=== PATIENT | female | born 1965 | race Caucasian/White ===

== ENCOUNTER 2017-02-19 19:46 | Emergency (ER) | payer MEDICAID ==
[~2017-02-19] VITALS: Ht 172.7 cm; Wt 57.2 kg
[2017-02-19] MEDS ORDERED: ALPRAZOLAM0.5 MG PO (20:02)
[2017-02-19] MEDS ORDERED: AMITRIPTYLINE 225 MG PO (20:03)
[2017-02-19] MEDS ORDERED: LIPITOR40 MG PO (20:03)
[2017-02-19] MEDS ORDERED: ASPIRIN 81MG TA81 MG PO (20:03)
[2017-02-19] MEDS ORDERED: CLOPIDOGREL75 MG PO (20:04)
[2017-02-19] MEDS ORDERED: BREO ELLIPTA1 POW IH (20:04)
[2017-02-19] MEDS ORDERED: MELOXICAM15 MG PO (20:05)
[2017-02-19] MEDS ORDERED: METOPROLOL SUCC25 M1 PO (20:05)
[2017-02-19] MEDS ORDERED: NITROGLYCERIN0.4 MG SL (20:07)
--- NOTE | 2017-02-19 20:14 | Emergency Room Report ---
History of Present Illness Time Seen by 1999 Presenting Problem in Triage Pt arrived:Walked Presenting Problem:PT C/O LEFT RIB, ARM, SHOULDER PAIN. 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 N Clinical Suspician of Infection? N Mental Status: 1 - Regular (Normal Baseline) Sepsis Risk:Possible Sepsis Risk Have you (or family members/close friends) recently traveled outside the [place]? N If Yes, where/when: Have you had exposure to infectious disease within the past month? N TB? Other? Specify: Source patient, RN notes reviewed, family, old records Exam Limitations no limitations Comment pt with lt ant chest pain on lt and toward shoulder with pain inc with insp - has had pxt in past - did lift yesterday - no fever or cough and no rash - Cardiac Chest Pain Chest pain indicative of cardiac No Timing/Duration this evening Severity moderate ALLERGIES Coded Allergies: No Known Allergies (04/02/16) Home Medications Reported Medications ALPRAZOLAM (Alprazolam 0.5MG) 0.5 MG PO TID Amitriptyline Hcl (Amitriptyline) 25 MG PO QHS ASPIRIN (Aspirin) 81 MG PO DAILY Atorvastatin Calcium (Atorvastatin) 20 MG PO DAILY FLUTICASONE/VILANTEROL (Breo Ellipta 100-25 Mcg INH) 1 POW IH DAILY CLOPIDOGREL BISULFATE (Clopidogrel 75MG) 75 MG PO DAILY Meloxicam (Meloxicam 15MG) 15 MG PO BID Metoprolol Succinate Xl (Metoprolol ER 25MG) 25 MG PO DAILY NITROGLYCERIN (Nitrostat) 0.4 MG SL [id number] PRN CP, HEART History Medical History General CAD? Yes Angina: No MD: No Hypertension? No Hyperlipidemia? Yes CHF? No DVT? No PE? No COPD? No Asthma? Yes Anemia? No GERD? No Gastric ulcers? No GI Bleed? No Hernia? No Thyroid Problems? No Hypothyroidism? No CVA? No Seizures? No Diabetes? No Renal Insuffiency? No End Stage Renal Disease? No UTI? No Stones? No BPH? No GB Disease: No Nephritic Syndrome? No Asplenia? No Hepatitis? No Sickle Cell Disease? No Arthritis? No Migraines? No Cataracts? Yes Glaucoma? No MRSA? No HIV? No TB? No Anxiety? Yes Depression? No Cancer? No More? 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 Respiratory see HPI, denies cough, denies shortness of breath, denies wheezing, other Cardiovascular see HPI, denies chest pain, denies palpitations, denies syncope, other Gastrointestinal denies abdominal pain, denies diarrhea, denies vomiting Genitourinary denies: dysuria, frequency, hesitancy, hematuria. Musculoskeletal denies back pain, denies joint pain, denies joint swelling, denies neck pain Skin denies rash Psychiatric/Neurological denies headache, denies seizure Physical Exam Vital Signs Vital Signs Date Time Temp Pulse Resp B/P Pulse O2 O2 Flow FiO2 Ox Delivery Rate 02/19 1949 98.4 92 20 136/92 100 - WBC >12,000 or <4,000 or 10% bands? 2 or more SIRS Criteria Met? B/P:136/92 MAP:106 Creatinine >2.0? UA output<0.5ml/kg/hr for 2 hrs? Platelet count >100,000? Lactate >2.0mmol/1? INR >1.2 or PTT > than 60 sec? Evidence of Organ Dysfunction? Provider documented clinical suspician of infection? N Sepsis Criteria Count: 2 Sepsis Risk: Possible Sepsis Risk General Appearance no apparent distress Eye Exam - bilateral eye PERRL, bilateral eye EOMI Ear, Nose, Throat normal ENT inspection Neck supple Respiratory Status Yes: tender on palpation. No: respiratory distress. Lung Sounds bilateral: lungs clear. Cardiovascular regular rate/rhythm, no rub, systolic murmur Peripheral Pulses Pulses normal Yes Gastrointestinal soft Extremities normal inspection Strength 4 Upper Ext (L), 4 Upper Ext (R), 4 Lower Ext (L), 4 Lower Ext (R) Neurologic alert, assessor II-XII nml as tested, no motor/sensory deficits Reflexes Reflexes normal No Mental status normal mood/affect Skin no rash cons.w/shingles Medical Decision Making LABS/Meds/Orders Pt receiving controlled substance in ED? No Results/Orders Orders Procedure Date/time Status DIET-NOTHING BY MOUTH 02/[address] CHEST W/O CONTRAST 02/[address] SCAN REQ 02/19 2031 Complete OIA-[id number]-FA-UNI-3 VIEWS 02/20 2000 Active HUMERUS-LT 02/20 2000 Active CHEST(2 VIEWS-NOT PORTABLE) 02/20 2000 Active XRAY/CT/US XRAY/CT/US 1 XRAY chest XR interpretation by reviewed by me Xray Results abnormal (pos apical changes), no infiltrates XRAY/CT/US [address] interpretation by discussed w/radiologist Time results known: 2133 CT Results abnormal (see report) Departure Departure Time of Disposition 2134 Disposition DC Home or Self Care(routine) Clinical Impression Primary Impression: Pleurodynia Condition STABLE Referrals Dodie Lorenzana MD (Family) Patient Instructions DI for Atypical Chest Pain Additional Instructions use meds and see pcp for follow up Discharge Counseling Counseled pt/family regarding diagnosis, test results, follow up needs Prescriptions Current Visit Scripts Prednisone (Prednisone 20MG) 20 MG PO BID #10 TAB ED Critical Care Critical Care No at 2138
--- NOTE | 2017-02-19 20:14 | Emergency Room Report ---
History of Present Illness Time Seen by 1999 Presenting Problem in Triage Pt arrived:Walked Presenting Problem:PT C/O LEFT RIB, ARM, SHOULDER PAIN. 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 N Clinical Suspician of Infection? N Mental Status: 1 - Regular (Normal Baseline) Sepsis Risk:Possible Sepsis Risk Have you (or family members/close friends) recently traveled outside the [place]? N If Yes, where/when: Have you had exposure to infectious disease within the past month? N TB? Other? Specify: Source patient, RN notes reviewed, family, old records Exam Limitations no limitations Comment pt with lt ant chest pain on lt and toward shoulder with pain inc with insp - has had pxt in past - did lift yesterday - no fever or cough and no rash - Cardiac Chest Pain Chest pain indicative of cardiac No Timing/Duration this evening Severity moderate ALLERGIES Coded Allergies: No Known Allergies (04/02/16) Home Medications Reported Medications ALPRAZOLAM (Alprazolam 0.5MG) 0.5 MG PO TID Amitriptyline Hcl (Amitriptyline) 25 MG PO QHS ASPIRIN (Aspirin) 81 MG PO DAILY Atorvastatin Calcium (Atorvastatin) 20 MG PO DAILY FLUTICASONE/VILANTEROL (Breo Ellipta 100-25 Mcg INH) 1 POW IH DAILY CLOPIDOGREL BISULFATE (Clopidogrel 75MG) 75 MG PO DAILY Meloxicam (Meloxicam 15MG) 15 MG PO BID Metoprolol Succinate Xl (Metoprolol ER 25MG) 25 MG PO DAILY NITROGLYCERIN (Nitrostat) 0.4 MG SL [id number] PRN CP, HEART History Medical History General CAD? Yes Angina: No [place]: No Hypertension? No Hyperlipidemia? Yes CHF? No DVT? No PE? No COPD? No Asthma? Yes Anemia? No GERD? No Gastric ulcers? No GI Bleed? No Hernia? No Thyroid Problems? No Hypothyroidism? No CVA? No Seizures? No Diabetes? No Renal Insuffiency? No End Stage Renal Disease? No UTI? No Stones? No BPH? No GB Disease: No Nephritic Syndrome? No Asplenia? No Hepatitis? No Sickle Cell Disease? No Arthritis? No Migraines? No Cataracts? Yes Glaucoma? No MRSA? No HIV? No TB? No Anxiety? Yes Depression? No Cancer? No More? 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 Respiratory see HPI, denies cough, denies shortness of breath, denies wheezing, other Cardiovascular see HPI, denies chest pain, denies palpitations, denies syncope, other Gastrointestinal denies abdominal pain, denies diarrhea, denies vomiting Genitourinary denies: dysuria, frequency, hesitancy, hematuria. Musculoskeletal denies back pain, denies joint pain, denies joint swelling, denies neck pain Skin denies rash Psychiatric/Neurological denies headache, denies seizure Physical Exam Vital Signs Vital Signs Date Time Temp Pulse Resp B/P Pulse O2 O2 Flow FiO2 Ox Delivery Rate 02/19 1949 98.4 92 20 136/92 100 - WBC >12,000 or <4,000 or 10% bands? 2 or more SIRS Criteria Met? B/P:136/92 MAP:106 Creatinine >2.0? UA output<0.5ml/kg/hr for 2 hrs? Platelet count >100,000? Lactate >2.0mmol/1? INR >1.2 or PTT > than 60 sec? Evidence of Organ Dysfunction? Provider documented clinical suspician of infection? N Sepsis Criteria Count: 2 Sepsis Risk: Possible Sepsis Risk General Appearance no apparent distress Eye Exam - bilateral eye PERRL, bilateral eye EOMI Ear, Nose, Throat normal ENT inspection Neck supple Respiratory Status Yes: tender on palpation. No: respiratory distress. Lung Sounds bilateral: lungs clear. Cardiovascular regular rate/rhythm, no rub, systolic murmur Peripheral Pulses Pulses normal Yes Gastrointestinal soft Extremities normal inspection Strength 4 Upper Ext (L), 4 Upper Ext (R), 4 Lower Ext (L), 4 Lower Ext (R) Neurologic alert, color developer II-XII nml as tested, no motor/sensory deficits Reflexes Reflexes normal No Mental status normal mood/affect Skin no rash cons.w/shingles Medical Decision Making LABS/Meds/Orders Pt receiving controlled substance in ED? No Results/Orders Orders Procedure Date/time Status DIET-NOTHING BY MOUTH 02/[address] CHEST W/O CONTRAST 02/[address] SCAN REQ 02/19 2031 Complete [id number]-[id number]-EP-UNI-3 VIEWS 02/20 2000 Active HUMERUS-LT 02/20 2000 Active CHEST(2 VIEWS-NOT PORTABLE) 02/20 2000 Active XRAY/CT/US XRAY/CT/US 1 XRAY chest XR interpretation by reviewed by me Xray Results abnormal (pos apical changes), no infiltrates XRAY/CT/US [address] interpretation by discussed w/radiologist Time results known: 2133 CT Results abnormal (see report) Departure Departure Time of Disposition 2134 Disposition DC Home or Self Care(routine) Clinical Impression Primary Impression: Pleurodynia Condition STABLE Referrals Dodie Lorenzana MD (Family) Patient Instructions DI for Atypical Chest Pain Additional Instructions use meds and see pcp for follow up Discharge Counseling Counseled pt/family regarding diagnosis, test results, follow up needs Prescriptions Current Visit Scripts Prednisone (Prednisone 20MG) 20 MG PO BID #10 TAB ED Critical Care Critical Care No at 2138
[2017-02-19] MEDS ORDERED: PREDNISONE 20MG20 MG PO (21:38)
[2017-02-19 21:51] VITALS: BP 131/90
--- NOTE | 2017-02-20 05:43 | RADIOLOGY REPORT PS360 ---
CHEST(2 VIEWS-NOT PORTABLE) HISTORY: Left sided chest pain, history of pneumothorax ARM, RIB, SHOULDER PAIN ORDERING PHYSICIAN: Corry Chi MD PATIENT AGE: 51 years COMPARISON: None available FINDINGS: Emphysematous changes with biapical blebs. No obvious pneumothorax. Old granulomatous disease The cardiomediastinal silhouette and pulmonary vascularity are within normal limits. The lungs are clear without infiltrates, suspicious nodules, or pleural effusions. No acute bony abnormalities. IMPRESSION: Emphysema with biapical blebs No acute finding
--- NOTE | 2017-02-20 05:47 | RADIOLOGY REPORT PS360 ---
HUMERUS-LT CLINICAL INDICATION: ARM, RIB, SHOULDER PAIN ORDERING PHYSICIAN: Corry Chi MD PATIENT AGE: 51 years COMPARISON: None FINDINGS: No bony or joint abnormality. IMPRESSION: Negative left humerus
--- NOTE | 2017-02-20 07:53 | RADIOLOGY REPORT PS360 ---
CT CHEST W/O CONTRAST HISTORY: pleurodynia, left-sided chest pain CHEST PAIN, SOB, history of pneumothorax ORDERING PHYSICIAN: Corry Chi MD PATIENT AGE: 51 years TECHNIQUE: Axial images obtained without contrast. Sagittal and coronal reformatted images are also reviewed. COMPARISON: None FINDINGS: No mediastinal or hilar mass evident. Calcified nodes are present in the mediastinum and johnathan. There are coronary artery calcifications. No cardiomegaly. Minimal pericardial thickening anteriorly There are moderate centrilobular emphysematous changes with biapical blebs with biapical fibrotic changes. No evidence of pneumothorax Old granulomatous disease with scattered calcified granulomas. A 4 mm noncalcified nodule present in the right middle lobe. 4 mm nodules present in the right lower lobe laterally and may contain a small mat of calcium small pleural-based nodules in the right lower lobe as well. 4 mm nodule along the major fissure on the right 6 mm opacity along major fissure on the left. A pleural-based nodules present in the left lower lobe posteriorly a 5 mm. Upper abdominal images are unremarkable. No acute bony anomalies. IMPRESSION: 1. Centrilobular emphysematous changes with bullous change and apical fibrosis. 2. Bilateral millimeter or less noncalcified nodules. Recommend 6 month follow-up. 3. No acute finding
== END 2017-02-19 21:51 | disposition home or self-care (01) ==
LOC: ER 19:46
DX: R07.81 Pleurodynia (principal); M25.512 Pain in left shoulder; I25.10 Atherosclerotic heart disease of native coronary artery without angina pectoris; F41.9 Anxiety disorder, unspecified; Z72.0 Tobacco use

== ENCOUNTER 2017-03-25 21:57 | Emergency (ER) | payer MEDICAID ==
[~2017-03-25] VITALS: Ht 172.7 cm; Wt 59.0 kg
--- NOTE | 2017-03-25 22:38 | Emergency Room Report ---
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 CC THROBBING AND ACHING. 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 N Clinical Suspician of Infection? N Mental Status: 1 - Regular (Normal Baseline) Sepsis Risk:Possible Sepsis Risk Have you (or family members/close friends) recently traveled outside the [place]? N If Yes, where/when: Have you had exposure to infectious disease within the past month? N TB? Other? Specify: Source patient, RN notes reviewed, family, old records Exam Limitations no limitations Comment rt hand lac tonight on glass Cardiac Chest Pain Chest pain indicative of cardiac No Timing/Duration this evening Severity moderate ALLERGIES Coded Allergies: No Known Allergies (04/02/16) Home Medications Active Scripts Prednisone (Prednisone 20MG) 20 MG PO BID #10 TAB Prov: 02/19/17 Reported Medications ALPRAZOLAM (Alprazolam 0.5MG) 0.5 MG PO TID Amitriptyline Hcl (Amitriptyline) 25 MG PO QHS ASPIRIN (Aspirin) 81 MG PO DAILY Atorvastatin Calcium (Atorvastatin) 20 MG PO DAILY FLUTICASONE/VILANTEROL (Breo Ellipta 100-25 Mcg INH) 1 POW IH DAILY CLOPIDOGREL BISULFATE (Clopidogrel 75MG) 75 MG PO DAILY Meloxicam (Meloxicam 15MG) 15 MG PO BID Metoprolol Succinate Xl (Metoprolol ER 25MG) 25 MG PO DAILY NITROGLYCERIN (Nitrostat) 0.4 MG SL [id number] PRN CP, HEART History Medical History General CAD? Yes Angina: No [place]: No Hypertension? No Hyperlipidemia? Yes CHF? No DVT? No PE? No COPD? No Asthma? Yes Anemia? No GERD? No Gastric ulcers? No GI Bleed? No Hernia? No Thyroid Problems? No Hypothyroidism? No CVA? No Seizures? No Diabetes? No Renal Insuffiency? No End Stage Renal Disease? No UTI? No Stones? No BPH? No GB Disease: No Nephritic Syndrome? No Asplenia? No Hepatitis? No Sickle Cell Disease? No Arthritis? No Migraines? No Cataracts? Yes Glaucoma? No MRSA? No HIV? No TB? No Anxiety? Yes Depression? No Cancer? No More? 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 Respiratory denies cough, denies shortness of breath, denies wheezing Cardiovascular denies chest pain, denies syncope Gastrointestinal denies abdominal pain, denies diarrhea, denies vomiting Genitourinary denies: dysuria, frequency, hesitancy, hematuria. Musculoskeletal denies back pain, denies joint pain, denies joint swelling, denies neck pain Skin see HPI, denies rash, other Psychiatric/Neurological denies headache, denies seizure Physical Exam Vital Signs Vital Signs Date Time Temp Pulse Resp B/P Pulse O2 O2 Flow FiO2 Ox Delivery Rate 03/25 2159 98.3 94 24 116/75 94 - WBC >12,000 or <4,000 or 10% bands? 2 or more SIRS Criteria Met? B/P:116/75 MAP:88 Creatinine >2.0? UA output<0.5ml/kg/hr for 2 hrs? Platelet count >100,000? Lactate >2.0mmol/1? INR >1.2 or PTT > than 60 sec? Evidence of Organ Dysfunction? Provider documented clinical suspician of infection? N Sepsis Criteria Count: 2 Sepsis Risk: Possible Sepsis Risk General Appearance no apparent distress Eye Exam - bilateral eye PERRL, bilateral eye EOMI Ear, Nose, Throat normal ENT inspection Neck supple Respiratory Status No: respiratory distress. Cardiovascular regular rate/rhythm Peripheral Pulses Pulses normal Yes Gastrointestinal soft Extremities normal inspection Strength 4 Upper Ext (L), 4 Upper Ext (R), 4 Lower Ext (L), 4 Lower Ext (R) Neurologic alert, snuff container inspector II-XII nml as tested, no motor/sensory deficits Reflexes Reflexes normal No Mental status normal mood/affect Skin laceration(s), 1.5 cm lac at base of rt fifth finger palmar aspect with neurovascular ok and no fb and tendon ok Medical Decision Making LABS/Meds/Orders Pt receiving controlled substance in ED? No Results/Orders Current Medication Orders Sig/Gracie Start time Last Medication Dose Route Stop Time Status Admin Acetaminophen/ 0 .STK-MED ONE 03/25 2347 DC Codeine Phosphate PO Acetaminophen/ 1 EARLINE ONCE ONE 03/25 2345 DC Codeine Phosphate PO 03/25 2346 Cephalexin 500 MG ONCE ONE 03/25 2345 DC Monohydrate PO 03/25 2346 Diphtheria/Pertussis/ 0.5 ML ONCE ONE 03/25 2345 DC Tetanus Vacc IM 03/25 2346 Lidocaine HCl 0 .STK-MED ONE 03/25 2247 DC .ROUTE Orders Procedure Date/time Status HAND-RT 3 VIEWS 03/25 2239 Active XRAY/CT/US XRAY/CT/US XRAY hand XR interpretation by reviewed by me Xray Results no fracture seen Procedures Laceration/Wound Repair Laceration/Wound Repair Risks/benefits discussed with pt/guardian? Yes Tetanus status not up to date Wound Location hand Wound Length (cm) 1.5 Wound's Depth, Shape sucutaneous tissue Wound Explored no FB identified Risk of retained FB explained to pt/guardian? Yes Irrigated w/ Saline (ccs) 0 Wound Prep Hibiclens, Saline Anesthesia 1% Lidocaine, Local Volume Anesthetic (ccs) 3 Wound Debrided none Wound Repaired With sutures Suture Size/Type 4:0, Ethilon Layer Closure No Total Number Sutures 7 Sterile Dressing Applied Yes Splint Applied No Sling Applied No Departure Departure Time of Disposition 2346 Disposition DC Home or Self Care(routine) Clinical Impression Primary Impression: Laceration of hand Qualifiers: Encounter type: initial encounter Foreign body presence: without foreign body Laterality: right Qualified Code: S61.411A - Laceration without foreign body of right hand, initial encounter Condition STABLE Referrals Dodie Lorenzana MD (Family) Patient Instructions DI for Laceration Repair Additional Instructions suture out 10 days and see pcp or ed if any problems Discharge Counseling Counseled pt/family regarding diagnosis, test results, medications/RX, follow up needs Prescriptions Current Visit Scripts CEPHALEXIN (Keflex 500MG Capsule) 500 MG PO Q8H #30 CAP ED Critical Care Critical Care No at 3614
[2017-03-26 00:12] VITALS: BP 101/78
--- NOTE | 2017-03-26 08:04 | RADIOLOGY REPORT PS360 ---
HAND-RT 3 VIEWS COMPARISON: Left hand 05/07/2014 HISTORY: Laceration to lateral aspect right hand TECHNIQUE: AP lateral and oblique views FINDINGS: There is a surgical dressing overlying the fifth MP joint. The metacarpals and all phalanges appear intact with no fracture seen. There are no soft tissue foreign bodies. The carpal bones appear intact. IMPRESSION: Apparent soft tissue injury, no fracture seen
--- OUTSIDE RECORDS SUMMARY | 2017-04-04 05:41 | External Medical Summary Rpt | CCD ---
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 Name Role Phone NILSON ADAME, NILSON Unavailable Unavailable WENDI VALENTIN PEGGY, Unavailable Unavailable VALENTIN PEGGY VALENTIN PEGGY, Unavailable Unavailable [facility] Unavailable [facility], [facility] ROSHNI, ROSHNI Unavailable Unavailable [facility] Unavailable Unavailable INC, [facility] Unavailable Unavailable [facility], [facility] HOSTA KISHORE, HOSTA KISHORE Unavailable Unavailable KEAGLE RIT, KEAGLE Unavailable Unavailable [facility] Unavailable Unavailable [facility], [facility] Unavailable Unavailable [facility], [facility] Unavailable Unavailable [facility], [facility] LAMEIER BRIANA, LAMEIER Unavailable Unavailable BRIANA LAMEIER BRIANA, LAMEIER Unavailable Unavailable BRIANA JOSE Mccann, Unavailable Unavailable JOSE PATRICIO [facility], Unavailable Unavailable [facility], [facility], [facility] Unavailable Unavailable [facility]IANS, [facility] JESSICA, JESSICA Unavailable Unavailable JESSICA YULI, JESSICA Unavailable Unavailable YULI Purpose Continuity of Care Document - 10-27-2013 through 2016 Problems Code Diagnosis DOS Provider Status R0781 PLEURODYNIA 02-19-2017 [facility] E782 MIXED 02-15-2017 HYPERLIPIDE [facility]IA [facility] 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 Z720 TOBACCO USE 02-15-2017 [facility] I10 ESSENTIAL 09-24-2016 [facility] HYPERTENSIO [facility] N R079 CHEST PAIN 04-13-2016 ST UNSPECIFIED [facility] R9439 ABNORMAL 04-13-2016 ST RESULT OT [facility] CARDIOVASCU PHYSICIANS LR FUNCTION STUDY R071 CHEST PAIN 04-02-2016 [place] [facility] R072 PRECORDIAL 04-02-2016 [facility] P E780 PURE 03-16-2016 [facility] HYPERCHOLES [facility] TEROLEMIA [facility] 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 08-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 460 ACUTE 11-25-2014 [facility] ITIS 496 CHRONIC 11-25-2014 [facility] AIRWAY [facility] OBSTRUCTION NEC 8489 UNSPECIFIED 07-08-2014 [facility] SITE [facility] SPRAIN AND STRAIN 9239 CONTUSION 07-08-2014 [facility] UNSPECIFIED PART OF UPPER LIMB 7295 PAIN IN 05-07-2014 [facility] LIMB 98691 SPRAIN AND 05-07-2014 [facility] STRAIN OF ASSOCIATES UNSPECIFIED SITE OF HAND 9594 INJURY 05-07-2014 [place] [facility] UNSPECIFIED IMAGING ASS HAND EXCEPT FINGER 9595 INJURY 05-07-2014 [facility] UNSPECIFIED INC FINGER 02845 PAIN IN 11-02-2013 [facility] PELVIC INC REGION AND THIGH 7292 UNSPECIFIED 11-02-2013 [facility] NEURALGIA PEGG[facility] NEURITIS AND RADICULITIS Medications Na ND Rx Da Fi Fi Am Da Di Ph RX Ph St me C No te ll ll ou ys ag ar # ys at rm s nt no ma ic us Or Da si cy ia de te s n re d AT 68 08 09 30 30 00 AK Ac OR 64 -3 -2 .0 00 L- ti VA [address] 46 20 20 49 RT AT 05 17 17 68 IN 4 13 PH AR 40 MA CY MG #5 TA 91 BL ET ME 54 08 09 30 30 00 [place] Ac LO 45 -3 -2 .0 00 L- ti XI 80 07 MA ve CA 96 20 20 49 RT M 41 17 17 68 15 6 10 PH AR MG MA CY TA BL #5 ET 91 AL 00 08 09 90 30 00 AK Ac AZ 22 -3 -2 .0 00 L- ti AZ 82 04 MA ve OL 02 20 20 53 RT AM 95 17 17 08 0 39 PH 0. AR 5 MA MG CY TA #5 BL 91 ET AM 16 08 09 60 30 00 [place] Ac IT 72 -3 -2 .0 00 L- ti RI 90 1- 9- 00 07 MA ve PT 17 20 20 49 RT YL 21 17 17 68 IN 7 09 PH E AR HC MA L CY 25 #5 MG 91 TA B CL 54 08 09 30 30 00 [place] Ac OP 45 -3 -2 .0 00 L- ti ID 80 1 07 MA ve OG 88 20 20 44 RT RE 81 17 17 82 L 6 61 PH 75 AR MA MG CY TA #5 BL 91 ET ME 62 08 09 30 30 00 [place] Ac TO 03 -3 -2 .0 00 L- ti AZ 70 07 MA ve OL 83 20 20 49 RT OL 01 17 17 68 0 12 PH NICOLE AR CC MA CY ER #5 25 91 MG TA B AZ 00 08 09 10 5 00 WA Ac ED 14 -3 -2 .0 00 L- ti NI 39 07 MA ve SO 73 20 20 50 RT NE 80 17 17 69 5 98 PH 20 AR MA MG CY TA #5 BL 91 ET AL 00 07 08 90 30 00 AK Ac AZ 22 -3 -2 .0 00 L- ti AZ 82 04 MA ve OL 02 20 20 53 RT AM 95 17 17 08 0 39 PH 0. AR 5 MA MG CY TA #5 BL 91 ET AT 68 07 08 30 30 00 AK Ac OR 64 -3 -2 .0 00 L- ti VA [address] 46 20 20 49 RT AT 05 17 17 68 IN 4 13 PH AR 40 MA CY MG #5 TA 91 BL ET ME 62 07 08 30 30 00 AK Ac TO 03 -3 -2 .0 00 L- ti AZ 70 07 MA ve OL 83 20 20 49 RT OL 01 17 17 68 0 12 PH NICOLE AR CC MA CY ER #5 25 91 MG TA B ME 54 07 08 30 30 00 WA Ac LO 45 -3 -2 .0 00 L- ti XI 80 1- 07 MA ve CA 96 20 20 49 RT M 41 17 17 68 15 6 10 PH AR MG MA CY TA BL #5 ET 91 CL 54 07 08 30 30 00 AK Ac OP 45 -3 -2 .0 00 L- ti ID 80 1- 07 MA ve OG 88 20 20 44 RT RE 81 17 17 82 L 6 61 PH 75 AR MA MG CY TA #5 BL 91 ET AM 16 07 08 60 30 00 AK Ac IT 72 -3 -2 .0 00 L- ti RI 90 1- 5- 00 07 MA ve PT 17 20 20 49 RT YL 21 17 17 68 IN 7 09 PH E AR HC MA L CY 25 #5 MG 91 TA B AM 16 07 07 60 30 00 WA Ac IT 72 -0 -2 .0 00 L- ti RI 90 3- 8- 00 07 MA ve PT 17 20 20 49 RT YL 21 17 17 68 IN 7 09 PH E AR HC MA L CY 25 #5 MG 91 TA B ME 54 07 07 30 30 00 WA Ac LO 45 -0 -2 .0 00 L- ti XI 80 3- 8- 00 07 MA ve CA 96 20 20 49 RT M 41 17 17 68 15 0 10 PH AR MG MA CY TA BL #5 ET 91 ME 62 07 07 30 30 00 WA Ac TO 03 -0 -2 .0 00 L- ti AZ 70 3- 8- 00 07 MA ve OL 83 20 20 49 RT OL 01 17 17 68 0 12 PH NICOLE AR CC MA CY ER #5 25 91 MG TA B AT 68 07 07 30 30 00 WA Ac OR 64 -0 -2 .0 00 L- ti VA 50 3- 8- [address] 46 20 20 49 RT AT 05 17 17 68 IN 4 13 PH AR 40 MA CY MG #5 TA 91 BL ET CE 16 07 07 30 30 00 WA Ac TI 57 -0 -2 .0 00 L- ti RI 10 3- 8- 00 08 MA ve ZI 40 20 20 84 RT NE 25 17 17 01 0 25 PH HC AR L MA 10 CY MG #5 91 TA BL ET AL 00 07 07 90 30 00 AK Ac AZ 22 -0 -2 .0 00 L- ti AZ 82 3- 8- 00 04 MA ve OL 02 20 20 53 RT AM 95 17 17 08 0 39 PH 0. AR 5 MA MG CY TA #5 BL 91 ET CL 00 07 07 30 30 00 WA Ac OP 09 -0 -2 .0 00 L- ti ID 37 3- 8- 00 07 MA ve OG 31 20 20 44 RT RE 49 17 17 82 L 8 61 PH 75 AR MA MG CY TA #5 BL 91 ET AT 68 06 07 30 30 00 WA Ac OR 64 -1 -1 .0 00 L- ti VA 50 7- 4- [address] 45 20 20 48 RT AT 95 17 17 01 IN 4 01 PH AR 20 MA CY MG #5 TA 91 BL ET ME 54 05 12 21 30 00 AK Ac LO 45 -3 -2 .0 00 L- ti XI 80 1- 3- 07 MA ve CA 96 20 20 48 RT M 41 17 17 01 15 0 00 PH AR MG MA CY TA BL #5 ET 91 BR 00 05 30 00 AK Ac EO 17 -3 -2 .0 00 L- ti 30 - 3- 07 MA ve EL 85 20 20 47 RT LI 91 17 17 73 PT 0 72 PH A AR 10 MA 0- CY 25 #5 MC 91 G IN H CL 54 05 12 21 30 00 AK Ac OP 45 -3 -2 .0 00 L- ti ID 80 3- 07 MA ve OG 88 20 20 44 RT RE 81 17 17 82 L 0 61 PH 75 AR MA MG CY TA #5 BL 91 ET ME 62 05 12 21 29 00 AK Ac TO 03 -3 -2 .0 00 L- ti AZ 70 1- 3- 07 MA ve OL 83 20 20 48 RT OL 01 17 17 01 0 02 PH NICOLE AR CC MA CY ER #5 25 91 MG TA B AL 00 05 00 AK Ac AZ 22 -3 -2 .0 00 L- ti AZ 82 3- 04 MA ve OL 02 20 20 52 RT AM 95 17 17 98 0 96 PH 0. AR 5 MA MG CY TA #5 BL 91 ET CL 54 05 11 20 30 00 AK Ac OP 45 -0 -2 .0 00 L- ti ID 80 6- 07 MA ve OG 88 20 20 44 RT RE 81 17 17 82 L 0 61 PH 75 AR MA MG CY TA #5 BL 91 ET AT 68 05 11 20 29 00 AK Ac OR 64 -0 -2 .0 00 L- ti VA 50 6- [address] 45 20 20 48 RT AT 95 17 17 01 IN 4 01 PH AR 20 MA CY MG #5 TA 91 BL ET BR 00 10 27 59 30 00 AK Ac EO 17 -0 -2 .0 00 L- ti 30 6- 07 MA ve EL 85 20 20 47 RT LI 91 17 17 73 PT 0 72 PH A AR 10 MA 0- CY 25 #5 MC 91 G IN H AL 00 10 26 89 30 00 AK Ac AZ 22 -0 -2 .0 00 L- ti AZ 82 1- 6- 04 MA ve OL 02 20 20 52 RT AM 95 17 17 98 0 96 PH 0. AR 5 MA MG CY TA #5 BL 91 ET ME 62 05 05 30 30 00 WA Ac TO 03 -0 -2 .0 00 L- ti AZ 70 1- 6- 00 07 MA ve OL 83 20 20 48 RT OL 01 17 17 01 0 02 PH NICOLE AR CC MA CY ER #5 25 91 MG TA B ME 54 05 05 30 30 00 WA Ac LO 45 -0 -2 .0 00 L- ti XI 80 1- 6- 00 07 MA ve CA 96 20 20 48 RT M 41 17 17 01 15 0 00 PH AR MG MA CY TA BL #5 ET 91 AM 16 04 04 60 30 00 WA Ac IT 72 -0 -2 .0 00 L- ti RI 90 3- 8- 00 07 MA ve PT 17 20 20 48 RT YL 21 17 17 00 IN 7 99 PH E AR HC MA L CY 25 #5 MG 91 TA B ME 54 04 04 30 30 00 WA Ac LO 45 -0 -2 .0 00 L- ti XI 80 3- 8- 00 07 MA ve CA 96 20 20 48 RT M 41 17 17 01 15 0 00 PH AR MG MA CY TA BL #5 ET 91 AT 68 04 04 30 30 00 WA Ac OR 64 -0 -2 .0 00 L- ti VA 50 3- 8- [address] 45 20 20 48 RT AT 97 17 17 01 IN 0 01 PH AR 20 MA CY MG #5 TA 91 BL ET ME 62 04 04 30 30 00 WA Ac TO 03 -0 -2 .0 00 L- ti AZ 70 3- 8- 00 07 MA ve OL 83 20 20 48 RT OL 01 17 17 01 0 02 PH NICOLE AR CC MA CY ER #5 25 91 MG TA B ME 59 04 04 21 6 00 WA Ac TH 74 -0 -2 .0 00 L- ti YL 60 3- 8- 00 07 MA ve AZ 00 20 20 48 RT ED 10 17 17 01 NI 3 32 PH SO AR LO MA NE CY 4 #5 MG 91 DO SE PK AL 00 04 04 90 30 00 WA Ac AZ 22 -0 -2 .0 00 L- ti AZ 82 3- 8- 00 04 MA ve OL 02 20 20 52 RT AM 95 17 17 98 0 96 PH 0. AR 5 MA MG CY TA #5 BL 91 ET CL 54 04 04 30 30 00 WA Ac OP 45 -0 -2 .0 00 L- ti ID 80 3- 8- 00 07 MA ve OG 88 20 20 44 RT RE 81 17 17 82 L 0 61 PH 75 AR MA MG CY TA #5 BL 91 ET NI 43 04 04 4. 30 00 AK Ac TR 47 -0 -2 09 00 L- ti OG 80 4- 8- 9 07 MA ve LY 41 20 20 48 RT CE 00 17 17 01 RI 3 03 PH N AR 40 MA 0 CY MC G #5 SP 91 RA Y BR 00 04 04 60 30 00 AK Ac EO 17 -0 -2 .0 00 L- ti 30 4- 8- 00 07 MA ve EL 85 20 20 47 RT LI 91 17 17 73 PT 0 72 PH A AR 10 MA 0- CY 25 #5 MC 91 G IN H CL 54 03 03 30 30 00 AK Ac OP 45 -0 -3 .0 00 L- ti ID 80 4- 1- 00 07 MA ve OG 88 20 20 44 RT RE 81 17 17 82 L 0 61 PH 75 AR MA MG CY TA #5 BL 91 ET ME 62 03 03 30 30 00 AK Ac TO 03 -0 -3 .0 00 L- ti AZ 70 4- 1- 00 07 MA ve OL 83 20 20 46 RT OL 01 17 17 19 0 11 PH NICOLE AR CC MA CY ER #5 25 91 MG TA B AT 68 03 03 30 30 00 AK Ac OR 64 -0 -3 .0 00 L- ti VA 50 4- 1- [address] 45 20 20 46 RT AT 97 17 17 19 IN 0 09 PH AR 20 MA CY MG #5 TA 91 BL ET AL 00 03 03 90 30 00 AK Ac AZ 22 -0 -3 .0 00 L- ti AZ 82 4- 1- 00 04 MA ve OL 02 20 20 52 RT AM 95 17 17 88 0 99 PH 0. AR 5 MA MG CY TA #5 BL 91 ET AM 16 03 03 60 30 00 AK Ac IT 72 -0 -3 .0 00 L- ti RI 90 4- 1- 00 07 MA ve PT 17 20 20 46 RT YL 21 17 17 19 IN 7 20 PH E AR HC MA L CY 25 #5 MG 91 TA B AT 68 01 02 30 30 00 AK Ac OR 64 -3 -2 .0 00 L- ti VA 50 1- 4- [address] 45 20 20 46 RT AT 97 17 17 19 IN 0 09 PH AR 20 MA CY MG #5 TA 91 BL ET SY 00 01 02 10 30 00 WA Ac MB 18 -3 -2 .1 00 L- ti IC 60 1- 4- 99 07 MA ve OR 37 20 20 46 RT T 22 17 17 19 80 0 21 PH -4 AR .5 MA CY MC G #5 IN 91 FONSECA LE R AM 16 01 02 60 30 00 WA Ac IT 72 -3 -2 .0 00 L- ti RI 90 1- 4- 00 07 MA ve PT 17 20 20 46 RT YL 21 17 17 19 IN 7 20 PH E AR HC MA L CY 25 #5 MG 91 TA B ME 62 01 02 30 30 00 WA Ac TO 03 -3 -2 .0 00 L- ti AZ 70 1- 4- 00 07 MA ve OL 83 20 20 46 RT OL 01 17 17 19 0 11 PH NICOLE AR CC MA CY ER #5 25 91 MG TA B CL 54 01 02 30 30 00 WA Ac OP 45 -3 -2 .0 00 L- ti ID 80 1- 4- 00 07 MA ve OG 88 20 20 44 RT RE 81 17 17 82 L 0 61 PH 75 AR MA MG CY TA #5 BL 91 ET AL 00 01 02 90 30 00 WA Ac AZ 22 -3 -2 .0 00 L- ti AZ 82 1- 4- 00 04 MA ve OL 02 20 20 52 RT AM 95 17 17 88 0 99 PH 0. AR 5 MA MG CY TA #5 BL 91 ET ME 54 01 02 30 30 00 WA Ac LO 45 -3 -2 .0 00 L- ti XI 80 1- 4- 00 07 MA ve CA 96 20 20 46 RT M 41 17 17 19 15 0 08 PH AR MG MA CY TA BL #5 ET 91 SY 00 01 02 10 30 00 WA Ac MB 18 -0 -0 .1 00 L- ti IC 60 2- 3- 99 07 MA ve OR 37 20 20 46 RT T 22 17 17 19 80 0 21 PH -4 AR .5 MA CY MC G #5 IN 91 FONSECA LE R ME 54 01 30 30 00 WA Ac LO 45 -0 -2 .0 00 L- ti XI 80 2- 7- 00 07 MA ve CA 96 20 20 46 RT M 41 17 17 19 15 0 08 PH AR MG MA CY TA BL #5 ET 91 AT 68 01 01 30 30 00 WA Ac OR 64 -0 -2 .0 00 L- ti VA 50 2- 7- [address] 45 20 20 46 RT AT 97 17 17 19 IN 0 09 PH AR 20 MA CY MG #5 TA 91 BL ET NI 43 01 01 4. 7 00 WA Ac TR 47 -0 -2 09 00 L- ti OG 80 2- 7- 9 07 MA ve LY 41 20 20 46 RT CE 00 17 17 19 RI 3 10 PH N AR 40 MA 0 CY MC G #5 SP 91 RA Y ME 62 01 01 30 30 00 WA Ac TO 03 -0 -2 .0 00 L- ti AZ 70 2- 7- 00 07 MA ve OL 83 20 20 46 RT OL 01 17 17 19 0 11 PH NICOLE AR CC MA CY ER #5 25 91 MG TA B CL 54 01 01 30 30 00 WA Ac OP 45 -0 -2 .0 00 L- ti ID 80 2- 7- 00 07 MA ve OG 88 20 20 44 RT RE 81 17 17 82 L 0 61 PH 75 AR MA MG CY TA #5 BL 91 ET AM 16 01 01 60 30 00 AK Ac IT 72 -0 -2 .0 00 L- ti RI 90 2- 7- 00 07 MA ve PT 17 20 20 46 RT YL 21 17 17 19 IN 7 20 PH E AR HC MA L CY 25 #5 MG 91 TA B AL 00 01 01 90 30 00 WA Ac AZ 22 -0 -2 .0 00 L- ti AZ 82 2- 7- 00 04 MA ve OL 02 20 20 52 RT AM 95 17 17 88 0 99 PH 0. AR 5 MA MG CY TA #5 BL 91 ET Procedures Procedure DOS Code Location Performer Comment COMPREHEN 46456 [facility] SIVE 7 [facility] [address] [facility]ESSICA L HRT & 6 VIV[facility]EN YULI ARTS W/NJX & PHYSICIAN ANGIO IMG S S&I TECHNETIU A9500 [facility] Zhao TC-99M 6 [facility] SESTAMIBI [facility] INC DX PER STUDY DOSE CV STRS 81655 [facility] DEVINE TST 6 [facility] RX CONT P ECG W/O I&R CV STRS 14548 [facility] SCHMID TST 6 [facility] XERS&/OR INC INC RX CONT ECG TRCG ONLY MYOCARDIA 19270 KELLY VALENTIN L SPECT 6 [facility]ICAL [facility] MULTIPLE IMAGING STUDIES ASS CV STRS 74408 [facility] DEVINE TST 6 [facility] RX CONT P ECG I&R ONLY COMPREHEN 00542 [facility] HOSTA KISHORE SIVE 6 [facility] PANEL LIPID 28091 FAMILY JOSE PANEL 6 CARE R H ASSOCIATE S COLLECTIO 40684 FAMILY JOSE N VENOUS 6 CARE R H BLOOD ASSOCIATE VENIPUNCT S URE COMPREHEN 77230 [facility] SIVE 6 [facility] PANEL LIPID 44393 FAMILY JOSE PANEL 6 CARE R H ASSOCIATE S THERAPEUT 29780 FAMILY JOSEAGLE IC 5 CARE RIT PROPHYLAC ASSOCIATE TIC/DX S INJECTION SUBQ/IM INJECTION J1100 FAMILY KEAGLE 5 CARE RIT DEXAMETHO ASSOCIATE SONE S SODIUM PHOSPHATE 1 MG BLOOD 95739 FAMILY FAMILY COUNT 5 CARE CARE COMPLETE ASSOCIATE ASSOCIATE AUTO&AUTO S S DIFRNTL WBC COLLECTIO 43221 FAMILY JOSE N VENOUS 5 CARE R H BLOOD ASSOCIATE VENIPUNCT S URE COLLECTIO 70399 FAMILY JOSE N 5 CARE R H CAPILLARY ASSOCIATE BLOOD S SPECIMEN LIPID 51119 FAMILY JOSE PANEL 5 CARE R H ASSOCIATE S BLOOD 27559 FAMILY JOSE COUNT 5 CARE R H COMPLETE ASSOCIATE AUTO&AUTO S DIFRNTL WBC RADEX 72394 KELLY HANSON HAND 2 4 MEDICAL PEGG[facility] VIEWS IMAGING ASS RADEX 28888 [facility] SCHMID HAND 4 [facility] MINIMUM 3 INC INC VIEWS RADEX HIP 30836 VALENTIN VALENTIN 4 PEGGY PEGGY UNILATERA L COMPLETE MINIMUM 2 VIEWS THERAPEUT 24712 JOSE JOSE IC 4 R H R H PROPHYLAC TIC/DX INJECTION SUBQ/IM INJECTION J1030 JOSE JOSE 4 R H R H METHYLPRE DNISOLONE ACETATE 40 MG Encounters Encounter Start End Date Code Location Performer Type Date EMERGENCY 08601 SHENG BARAKAT DEPT 7 7 PHYSICIAN VISIT S, PLLC HIGH SEVERITY& THREAT FUNCJ OFFICE 12117 [facility] OUTPATIEN 7 7 VIVIEN T VISIT 25 PHYSICIAN MINUTES S OFFICE 07554 [facility] CONSULTAT 6 6 VIVIEN COBOS NEW/ESTAB PHYSICIAN PATIENT S 60 MIN [facility]OSPITAL [facility] - 6 6 [facility] OUTPATIEN INC T OFFICE 35619 LAMRADHAER L[facility] OUTPATIEN 6 6 BRIANA WARREN Kristi NEW 45 MINUTES OFFICE 86799 [facility]LE OUTPATIEN 5 5 CARE RIT T VISIT ASSOCIATE 15 S MINUTES OFFICE 82222 FAMILY JOSE OUTPATIEN 5 5 CARE R H T VISIT ASSOCIATE 15 S MINUTES OFFICE 87552 FAMILY JOSE OUTPATIEN 4 4 CARE R H T VISIT ASSOCIATE 15 S MINUTES [facility]OSPITAL [facility] - 4 4 [facility] T [facility] - 4 4 [facility] OUTPATIEN INC T OFFICE 94454 JOSE JOSE OUTPATIEN 4 4 R H R H T VISIT 15 MINUTES
--- OUTSIDE RECORDS SUMMARY | 2017-04-04 05:41 | External Medical Summary Rpt | CCD ---
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 Apprentice Name Role Phone NILSON ADAME, NILSON Unavailable Unavailable WENDI VALENTIN PEGGY, Unavailable Unavailable VALENTIN PEGGY VALENTIN PEGGY, Unavailable Unavailable [facility] Unavailable Unavailable [facility] ROSHNI, ROSHNI Unavailable Unavailable [facility] Unavailable Unavailable INC, [facility] Unavailable Unavailable [facility] P, [facility] HOSTA KISHORE, HOSTA KISHORE Unavailable Unavailable KEAGLE RIT, KEAGLE Unavailable Unavailable [facility] Unavailable Unavailable [facility], [facility] Unavailable Unavailable [facility]INGS, [facility] Unavailable Unavailable [facility], [facility] Unavailable Unavailable [facility], [facility] LAMEIER BRIANA, LAMEIER Unavailable Unavailable BRIANA LAMEIER BRIANA, LAMEIER Unavailable Unavailable BRIANA JOSE Mccann, Unavailable Unavailable JOSE PATRICIO [facility], Unavailable Unavailable [facility], [facility], [facility] Unavailable Unavailable PH[facility]ICIANS, [facility] JESSICA, JESSICA Unavailable Unavailable JESSICA YULI, JESSICA Unavailable Unavailable YULI Purpose Continuity of Care Document - 10-27-2013 through 2016 Problems Code Diagnosis DOS Provider Status R0781 PLEURODYNIA 02-19-2017 [facility], [facility] E782 MIXED 02-15-2017 HYPERLIPIDE [facility]IV[facility]EN MIA PHYSICIANS 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[facility]EN ARTERY W/O PHYSICIANS ANGINA PECTORIS Z720 TOBACCO USE 02-15-2017 ST [facility] PHYSICIANS I10 ESSENTIAL 09-24-2016 LAB [facility] PRIMARY [facility] HYPERTENSIO HOLDINGS N R079 CHEST PAIN 04-13-[address] UNSPECIFIED [facility] PHYSICIANS R9439 ABNORMAL 04-13-2016 ST RESULT OT VIVIEN CARDIOVASCU PHYSICIANS LR FUNCTION STUDY R071 CHEST PAIN 04-02-2016 [place] [facility] R072 PRECORDIAL 04-02-2016 [facility] P E780 PURE 03-16-2016 LAB [facility] HYPERCHOLES [facility] TEROLEMIA HOLDINGS R04997 POST 08-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 460 ACUTE 11-25-2014 [facility] ITIS 496 CHRONIC 11-25-2014 [facility] AIRWAY [facility] OBSTRUCTION NEC 8489 UNSPECIFIED 07-08-2014 [facility] SITE OF ASSOCIATES SPRAIN AND STRAIN 9239 CONTUSION 07-08-2014 [facility]IATES UNSPECIFIED PART OF UPPER LIMB 7295 PAIN IN 05-07-2014 [facility] TISSUES OF IMAGING ASS LIMB 19051 SPRAIN AND 05-07-2014 [facility] STRAIN OF ASSOCIATES UNSPECIFIED SITE OF HAND 9594 INJURY 05-07-2014 [facility] UNSPECIFIED IMAGING ASS HAND EXCEPT FINGER 9595 INJURY 05-07-2014 [facility] UNSPECIFIED INC FINGER 58321 PAIN IN 11-02-2013 [facility] [...] AT 68 08 09 30 30 00 ID Ac OR 64 -3 -2 .0 00 L- ti VA [address] 46 20 20 49 RT AT 05 17 17 68 IN 4 13 PH AR 40 MA CY MG #5 TA 91 BL ET ME 54 08 09 30 30 00 ID Ac LO 45 -3 -2 .0 00 L- ti XI 80 07 MA ve CA 96 20 20 49 RT M 41 17 17 68 15 6 10 PH AR MG MA CY TA BL #5 ET 91 AL 00 08 09 90 30 00 ID Ac VT 22 -3 -2 .0 00 L- ti AZ 82 04 MA ve OL 02 20 20 53 RT AM 95 17 17 08 0 39 PH 0. AR 5 MA MG CY TA #5 BL 91 ET AM 16 08 09 60 30 00 ID Ac IT 72 -3 -2 .0 00 [...] 03 -3 -2 .0 00 L- ti VT 70 07 MA ve OL 83 20 20 49 RT OL 01 17 17 68 0 12 PH NICOLE AR CC MA CY ER #5 25 91 MG TA B VT 00 08 09 10 5 00 WA Ac ED 14 -3 -2 .0 00 L- ti NI 39 07 MA ve SO 73 20 20 50 RT NE 80 17 17 69 5 98 PH 20 AR MA MG CY TA #5 BL 91 ET AL 00 07 08 90 30 00 ID Ac VT 22 -3 -2 .0 00 L- ti AZ 82 04 MA ve OL 02 20 20 53 RT AM 95 17 17 08 0 39 PH 0. AR 5 MA MG CY TA #5 BL 91 ET AT 68 07 08 30 30 00 ID Ac OR 64 -3 -2 .0 00 L- ti VA [address] 46 20 20 49 RT AT 05 17 17 68 IN 4 13 PH AR 40 MA CY MG #5 TA 91 BL ET ME 62 07 08 30 30 00 ID Ac TO 03 -3 -2 .0 00 L- ti VT 70 07 MA ve OL 83 20 [...] CL 54 07 08 30 30 00 ID Ac OP 45 -3 -2 .0 00 L- ti ID 80 1- 07 MA ve OG 88 20 20 44 RT RE 81 17 17 82 L 6 61 PH 75 AR MA MG CY TA #5 BL 91 ET AM 16 07 08 60 30 00 ID Ac IT 72 -3 -2 .0 00 [...] 03 -0 -2 .0 00 L- ti VT 70 3- 8- 00 07 MA ve [...] AL 00 07 07 90 30 00 ID Ac VT 22 -0 -2 .0 00 L- ti [...] ME 54 05 12 21 30 00 ID Ac LO 45 -3 -2 .0 00 L- ti XI 80 1- 3- 07 MA ve CA 96 20 20 48 RT M 41 17 17 01 15 0 00 PH AR MG MA CY TA BL #5 ET 91 BR 00 05 30 00 ID Ac EO 17 -3 -2 .0 00 L- ti 30 - 3- 07 MA ve EL 85 20 20 47 RT LI 91 17 17 73 PT 0 72 PH A AR 10 MA 0- CY 25 #5 MC 91 G IN H CL 54 05 12 21 30 00 ID Ac OP 45 -3 -2 .0 00 L- ti ID 80 3- 07 MA ve OG 88 20 20 44 RT RE 81 17 17 82 L 0 61 PH 75 AR MA MG CY TA #5 BL 91 ET ME 62 05 12 21 29 00 ID Ac TO 03 -3 -2 .0 00 L- ti VT 70 1- 3- 07 MA ve OL 83 20 20 48 RT OL 01 17 17 01 0 02 PH NICOLE AR CC MA CY ER #5 25 91 MG TA B AL 00 05 00 ID Ac VT 22 -3 -2 .0 00 L- ti AZ 82 3- 04 MA ve OL 02 20 20 52 RT AM 95 17 17 98 0 96 PH 0. AR 5 MA MG CY TA #5 BL 91 ET CL 54 05 11 20 30 00 ID Ac OP 45 -0 -2 .0 00 L- ti ID 80 6- 07 MA ve OG 88 20 20 44 RT RE 81 17 17 82 L 0 61 PH 75 AR MA MG CY TA #5 BL 91 ET AT 68 05 11 20 29 00 ID Ac OR 64 -0 -2 .0 00 L- ti VA 50 6- [address] 45 20 20 48 RT AT 95 17 17 01 IN 4 01 PH AR 20 MA CY MG #5 TA 91 BL ET BR 00 10 27 59 30 00 ID Ac EO 17 -0 -2 .0 00 L- ti 30 6- 07 MA ve EL 85 20 20 47 RT LI 91 17 17 73 PT 0 72 PH A AR 10 MA 0- CY 25 #5 MC 91 G IN H AL 00 10 26 89 30 00 ID Ac VT 22 -0 -2 .0 00 L- ti AZ 82 1- 6- 04 MA ve OL 02 20 20 52 RT AM 95 17 17 98 0 96 PH 0. AR 5 MA MG CY TA #5 BL 91 ET ME 62 05 05 30 30 00 WA Ac TO 03 -0 -2 .0 00 L- ti VT 70 1- 6- 00 07 MA ve [...] 03 -0 -2 .0 00 L- ti VT 70 3- 8- 00 07 MA ve OL 83 20 20 48 RT OL 01 17 17 01 0 02 PH NICOLE AR CC MA CY ER #5 25 91 MG TA B ME 59 04 04 21 6 00 WA Ac TH 74 -0 -2 .0 00 L- ti YL 60 3- 8- 00 07 MA ve VT 00 20 20 48 RT ED 10 17 17 01 NI 3 32 PH SO AR LO MA NE CY 4 #5 MG 91 DO SE PK AL 00 04 04 90 30 00 WA Ac VT 22 -0 -2 .0 00 L- ti [...] NI 43 04 04 4. 30 00 ID Ac TR 47 -0 -2 09 00 L- ti OG 80 4- 8- 9 07 MA ve LY 41 20 20 48 RT CE 00 17 17 01 RI 3 03 PH N AR 40 MA 0 CY MC G #5 SP 91 RA Y BR 00 04 04 60 30 00 ID Ac EO 17 -0 -2 .0 00 L- ti 30 4- 8- 00 07 MA ve EL 85 20 20 47 RT LI 91 17 17 73 PT 0 72 PH A AR 10 MA 0- CY 25 #5 MC 91 G IN H CL 54 03 03 30 30 00 ID Ac OP 45 -0 -3 .0 00 L- ti ID 80 4- 1- 00 07 MA ve OG 88 20 20 44 RT RE 81 17 17 82 L 0 61 PH 75 AR MA MG CY TA #5 BL 91 ET ME 62 03 03 30 30 00 ID Ac TO 03 -0 -3 .0 00 L- ti VT 70 4- 1- 00 07 MA ve OL 83 20 20 46 RT OL 01 17 17 19 0 11 PH NICOLE AR CC MA CY ER #5 25 91 MG TA B AT 68 03 03 30 30 00 ID Ac OR 64 -0 -3 .0 00 L- ti VA 50 4- 1- [address] 45 20 20 46 RT AT 97 17 17 19 IN 0 09 PH AR 20 MA CY MG #5 TA 91 BL ET AL 00 03 03 90 30 00 ID Ac VT 22 -0 -3 .0 00 L- ti AZ 82 4- 1- 00 04 MA ve OL 02 20 20 52 RT AM 95 17 17 88 0 99 PH 0. AR 5 MA MG CY TA #5 BL 91 ET AM 16 03 03 60 30 00 ID Ac IT 72 -0 -3 .0 00 L- ti RI 90 4- 1- 00 07 MA ve PT 17 20 20 46 RT YL 21 17 17 19 IN 7 20 PH E AR HC MA L CY 25 #5 MG 91 TA B AT 68 01 02 30 30 00 ID Ac OR 64 -3 -2 .0 00 [...] 03 -3 -2 .0 00 L- ti VT 70 1- 4- 00 07 MA ve [...] 01 02 90 30 00 WA Ac VT 22 -3 -2 .0 00 L- ti [...] 03 -0 -2 .0 00 L- ti VT 70 2- 7- 00 07 MA ve [...] AM 16 01 01 60 30 00 ID Ac IT 72 -0 -2 .0 00 L- ti RI 90 2- 7- 00 07 MA ve PT 17 20 20 46 RT YL 21 17 17 19 IN 7 20 PH E AR HC MA L CY 25 #5 MG 91 TA B AL 00 01 01 90 30 00 WA Ac VT 22 -0 -2 .0 00 L- ti AZ 82 2- 7- 00 04 MA ve OL 02 20 20 52 RT AM 95 17 17 88 0 99 PH 0. AR 5 MA MG CY TA #5 BL 91 ET Procedures Procedure DOS Code Location Performer Comment COMPREHEN 60597 LAB [facility] LAB [facility] SIVE 7 [facility] HOLDINGS PANEL CATH PLMT 92453 ST JESSICA L HRT & 6 VIVIEN YULI ARTS W/NJX & PHYSICIAN ANGIO IMG S S&I TECHNETIU A9500 [facility] Zhao TC-99M 6 [facility] SESTAMIBI INC INC DX PER STUDY DOSE CV STRS 14619 B[facility] DEVINE TST 6 [facility] RX CONT P ECG W/O I&R CV STRS 22658 B[facility] SCHMID TST 6 [facility] XERS&/OR INC INC RX CONT ECG TRCG ONLY MYOCARDIA 70912 KELLY VALENTIN L SPECT 6 MEDICAL PEGGY MULTIPLE IMAGING STUDIES ASS CV STRS 88777 [facility] DEVINE TST 6 [facility]/OR [facility] RX CONT P ECG I&R ONLY COMPREHEN 59955 LAB [facility] HOSTA KISHORE SIVE 6 [facility] PANEL LIPID 58480 FAMILY JOSE PANEL 6 CARE R H ASSOCIATE S COLLECTIO 36704 FAMILY JOSE N VENOUS 6 CARE R H BLOOD ASSOCIATE VENIPUNCT S URE COMPREHEN 40243 LAB [facility] LAB RAFFY SIVE 6 [facility] HOLDINGS PANEL LIPID 23113 FAMILY JOSE PANEL 6 CARE R H ASSOCIATE S THERAPEUT 70626 FAMILY JOSEAGLE IC 5 CARE RIT PROPHYLAC ASSOCIATE TIC/DX S INJECTION SUBQ/IM INJECTION J1100 FAMILY KEAGLE 5 CARE RIT DEXAMETHO ASSOCIATE SONE S SODIUM PHOSPHATE 1 MG BLOOD 79524 FAMILY FAMILY COUNT 5 CARE CARE COMPLETE ASSOCIATE ASSOCIATE AUTO&AUTO S S DIFRNTL WBC COLLECTIO 91085 FAMILY JOSE N VENOUS 5 CARE R H BLOOD ASSOCIATE VENIPUNCT S URE COLLECTIO 37298 FAMILY JOSE N 5 CARE R H CAPILLARY ASSOCIATE BLOOD S SPECIMEN LIPID 81678 FAMILY JOSE PANEL 5 CARE R H ASSOCIATE S BLOOD 28619 FAMILY JOSE COUNT 5 CARE R H COMPLETE ASSOCIATE AUTO&AUTO S DIFRNTL WBC RADEX 08714 KELLY HANSON HAND 2 4 MEDICAL PEGGY VIEWS IMAGING ASS RADEX 88929 [facility] SCHMID HAND 4 [facility] MINIMUM 3 INC INC VIEWS RADEX HIP 64955 VALENTIN VALENTIN 4 PEGGY PEGGY UNILATERA L COMPLETE MINIMUM 2 VIEWS THERAPEUT 19870 JOSE JOSE IC 4 R H R H PROPHYLAC TIC/DX INJECTION SUBQ/IM INJECTION J1030 JOSE JOSE 4 R H R H METHYLPRE DNISOLONE ACETATE 40 MG Encounters Encounter Start End Date Code Location Performer Type Date EMERGENCY 64992 SHENG BARAKAT DEPT 7 7 PHYSICIAN VISIT S, PLLC HIGH SEVERITY& THREAT FUNCJ OFFICE 65683 [facility] OUTPATIEN 7 7 VIVIEN T VISIT 25 PHYSICIAN MINUTES S OFFICE 50981 [facility] CONSULTAT 6 6 VIVIEN COBOS NEW/ESTAB PHYSICIAN PATIENT S 60 MIN [facility]OSPITAL [facility] - 6 6 [facility] OUTPATIEN INC T OFFICE 83888 [facility] OUTPATIEN 6 6 BRIANA WARREN Kristi NEW 45 MINUTES OFFICE 74073 [facility] KE[facility]LE OUTPATIEN 5 5 CARE RIT T VISIT ASSOCIATE 15 S MINUTES OFFICE 49462 [facility] JOSE OUTPATIEN 5 5 CARE R H T VISIT ASSOCIATE 15 S MINUTES OFFICE 92609 [facility] JOSE OUTPATIEN 4 4 CARE R H T VISIT ASSOCIATE 15 S MINUTES [facility]OSPITAL [facility] - 4 4 [facility] T [facility] - 4 4 [facility] OUTPATIEN INC T OFFICE 00057 JOSE JOSE OUTPATIEN 4 4 R H R H T VISIT 15 MINUTES
--- OUTSIDE RECORDS SUMMARY | 2017-04-04 05:44 | External Medical Summary Rpt | CCD ---
Demographics Preferred Language Singaporean Marital Status Unknown Restorationist Affiliation Unknown Race Unknown Ethnic Group Unknown Author Author , RIAN MODI Address Unknown Phone Immunization No patient found.
--- OUTSIDE RECORDS SUMMARY | 2017-04-04 05:44 | External Medical Summary Rpt | CCD ---
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 Name Role Phone NILSON ADAME, VIRGIESON Unavailable Unavailable WENDI VALENTIN PEGGY, Unavailable Unavailable VALENTIN PEGGY VALENTIN PEGG[facility], Unavailable Unavailable [facility] Unavailable [facility] ROSHNI, ORSHNI Unavailable Unavailable [facility] Unavailable Unavailable INC, [facility] Unavailable Unavailable HOSPITAL P, [facility] HOSTA KISHORE, HOSTA KISHORE Unavailable Unavailable KEAGLE RIT, KEAGLE Unavailable Unavailable [facility] Unavailable Unavailable [facility], [facility] Unavailable Unavailable HOLDINGS, [facility] Unavailable Unavailable HOLDINGS, [facility] Unavailable Unavailable HOLDINGS, [facility] Unavailable Unavailable BRIANA LAMJOB BRIANA, LAMEIER Unavailable Unavailable BRIANA JOSE R H, Unavailable Unavailable JOSE R H [facility], Unavailable Unavailable DANILO, SHENG FLETCHER, [facility] Unavailable Unavailable PHYSICIANS, [facility] JESSICA, JESSICA Unavailable Unavailable JESSICA YULI, JESSICA Unavailable Unavailable YULI Purpose Continuity of Care Document - 10-27-2013 through 2016 Problems Code Diagnosis DOS Provider Status R0781 PLEURODYNIA 02-19-2017 [facility] E782 MIXED 02-15-2017 HYPERLIPIDE VIV[facility]IA [facility]YS[facility] I2510 ASHD SUQUAMISH 02-15-2017 CORONARY VIVIEN ARTERY W/O PHYSICIANS ANGINA PECTORIS Z720 TOBACCO USE 02-15-2017 [facility] I10 ESSENTIAL 09-24-2016 LAB [facility] PRIMARY [facility] HYPERTENSIO HOLDINGS N R079 CHEST PAIN 04-13-2016 ST UNSPECIFIED [facility] PHYSICIANS R9439 ABNORMAL 04-13-2016 [facility] LR FUNCTION STUDY R071 CHEST PAIN 04-02-2016 [facility] R072 PRECORDIAL 04-02-2016 [facility] P E780 PURE 03-16-2016 LAB [facility] HYPERCHOLES [facility] TEROLEMIA HOLDINGS A08296 POST 08-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 460 ACUTE 11-25-2014 [facility] ITIS 496 CHRONIC 11-25-2014 [facility]AY [facility] OBSTRUCTION NEC 8489 UNSPECIFIED 07-08-2014 [facility] S[facility] ASSOCI[facility] SPRAIN AND STRAIN 9239 CONTUSION 07-08-2014 [facility] UNSPECIFIED PART OF UPPER LIMB 7295 PAIN IN 05-07-2014 [facility] TISSUES OF IMAGING ASS LIMB 40742 SPRAIN AND 05-07-2014 [facility] STRAIN OF ASSOCIATES UNSPECIFIED SITE OF HAND 9594 INJURY 05-07-2014 [place] [facility] UNSPECIFIED IMAGING ASS HAND EXCEPT FINGER 9595 INJURY 05-07-2014 [facility] UNSPECIFIED INC FINGER 48723 PAIN IN 11-02-2013 [facility] PELVIC INC REGION AND [...] AT 68 08 09 30 30 00 WA Ac OR 64 -3 -2 .0 00 L- ti VA [address] 46 20 20 49 RT AT 05 17 17 68 IN 4 13 PH AR 40 MA CY MG #5 TA 91 BL ET ME 54 08 09 30 30 00 WA Ac LO 45 -3 -2 .0 00 L- ti XI 80 07 MA ve CA 96 20 20 49 RT M 41 17 17 68 15 6 10 PH AR MG MA CY TA BL #5 ET 91 AL 00 08 09 90 30 00 WA Ac AL 22 -3 -2 .0 00 L- ti AZ 82 04 MA ve OL 02 20 20 53 RT AM 95 17 17 08 0 39 PH 0. AR 5 MA MG CY TA #5 BL 91 ET AM 16 08 09 60 30 00 WA Ac IT 72 -3 -2 .0 00 L- ti RI 90 07 MA ve PT 17 20 20 49 RT YL 21 17 17 68 IN 7 09 PH E AR HC MA L CY 25 #5 MG 91 TA B CL 54 08 09 30 30 00 WA Ac OP 45 -3 -2 .0 00 L- ti ID 80 1 9- 07 MA ve OG 88 20 20 44 RT RE 81 17 17 82 L 6 61 PH 75 AR MA MG CY TA #5 BL 91 ET ME 62 08 09 30 30 00 WA Ac TO 03 -3 -2 .0 00 L- ti AL 70 1- 07 MA ve OL 83 20 20 49 RT OL 01 17 17 68 0 12 PH NICOLE AR CC MA CY ER #5 25 91 MG TA B AL 00 08 09 10 5 00 NC Ac ED 14 -3 -2 .0 00 L- ti NI 39 07 MA ve SO 73 20 20 50 RT NE 80 17 17 69 5 98 PH 20 AR MA MG CY TA #5 BL 91 ET AL 00 07 08 90 30 00 NC Ac AL 22 -3 -2 .0 00 L- ti AZ 82 04 MA ve OL 02 20 20 53 RT AM 95 17 17 08 0 39 PH 0. AR 5 MA MG CY TA #5 BL 91 ET AT 68 07 08 30 30 00 NC Ac OR 64 -3 -2 .0 00 L- ti VA 50 06-28- [address] 46 20 20 49 RT AT 05 17 17 68 IN 4 13 PH AR 40 MA CY MG #5 TA 91 BL ET ME 62 07 08 30 30 00 NC Ac TO 03 -3 -2 .0 00 L- ti AL 70 06-28- 07 MA ve OL 83 20 20 [...] CL 54 07 08 30 30 00 WA Ac OP 45 -3 -2 .0 00 L- ti ID 80 1 5- 07 MA ve OG 88 20 20 44 RT RE 81 17 17 82 L 6 61 PH 75 AR MA MG CY TA #5 BL 91 ET AM 16 07 08 60 30 00 NC Ac IT 72 -3 -2 .0 00 L- ti RI 90 1- 5- 00 07 MA ve PT 17 20 20 49 RT YL 21 17 17 68 IN 7 09 PH E AR HC MA L CY 25 #5 MG 91 TA B CL 00 07 07 30 30 00 WA Ac OP 09 -0 -2 .0 00 L- ti ID 37 3- 8- 00 07 MA ve OG 31 20 20 44 RT RE 49 17 17 82 L 8 61 PH 75 AR MA MG CY TA #5 BL 91 ET AM 16 07 07 60 30 00 [...] 03 -0 -2 .0 00 L- ti AL 70 3- 8- 00 07 MA ve [...] AL 00 07 07 90 30 00 WA Ac AL 22 -0 -2 .0 00 L- ti [...] TA 91 BL ET ME 54 05 06 30 30 00 WA Ac LO 45 -3 -2 .0 00 L- ti XI 80 1- 3- 07 MA ve CA 96 20 20 48 RT M 41 17 17 01 15 0 00 PH AR MG MA CY TA BL #5 ET 91 BR 00 05 60 30 00 NC Ac EO 17 -3 -2 .0 00 L- ti 30 1- 3- 07 MA ve EL 85 20 20 47 RT LI 91 17 17 73 PT 0 72 PH A AR 10 MA 0- CY 25 #5 MC 91 G IN H CL 54 05 12 21 30 00 NC Ac OP 45 -3 -2 .0 00 L- ti ID 80 3- 07 MA ve OG 88 20 20 44 RT RE 81 17 17 82 L 0 61 PH 75 AR MA MG CY TA #5 BL 91 ET ME 62 05 12 21 29 00 NC Ac TO 03 -3 -2 .0 00 L- ti AL 70 3- 07 MA ve OL 83 20 20 48 RT OL 01 17 17 01 0 02 PH NICOLE AR CC MA CY ER #5 25 91 MG TA B AL 00 00 NC Ac AL 22 -3 -2 .0 00 L- ti AZ 82 3- 04 MA ve OL 02 20 20 52 RT AM 95 17 17 98 0 96 PH 0. AR 5 MA MG CY TA #5 BL 91 ET CL 54 05 30 30 00 NC Ac OP 45 -0 -2 .0 00 L- ti ID 80 6- 07 MA ve OG 88 20 20 44 RT RE 81 17 17 82 L 0 61 PH 75 AR MA MG CY TA #5 BL 91 ET AT 68 05 11 20 30 00 NC Ac OR 64 -0 -2 .0 00 L- ti VA 50 6- [address] 45 20 20 48 RT AT 95 17 17 01 IN 4 01 PH AR 20 MA CY MG #5 TA 91 BL ET BR 00 05 60 30 00 NC Ac EO 17 -0 -2 .0 00 L- ti 30 6- 07 MA ve EL 85 20 20 47 RT LI 91 17 17 73 PT 0 72 PH A AR 10 MA 0- CY 25 #5 MC 91 G IN H AL 00 05 30 00 NC Ac AL 22 -0 -2 .0 00 L- ti AZ 82 1- 6- 04 MA ve OL 02 20 20 52 RT AM 95 17 17 98 0 96 PH 0. AR 5 MA MG CY TA #5 BL 91 ET ME 62 05 05 30 30 00 WA Ac TO 03 -0 -2 .0 00 L- ti AL 70 1- 6- 00 07 MA ve [...] 00 L- ti XI 80 3- 8- 07 MA ve CA 96 20 20 [...] ME 62 04 04 30 30 00 NC Ac TO 03 -0 -2 .0 00 L- ti AL 70 3- 8- 00 07 MA ve OL 83 20 20 48 RT OL 01 17 17 01 0 02 PH NICOLE AR CC MA CY ER #5 25 91 MG TA B ME 59 04 04 21 6 00 WA Ac TH 74 -0 -2 .0 00 L- ti YL 60 3- 8- 00 07 MA ve AL 00 20 20 48 RT ED 10 17 17 01 NI 3 32 PH SO AR LO MA NE CY 4 #5 MG 91 DO SE PK AL 00 04 04 90 30 00 WA Ac AL 22 -0 -2 .0 00 L- ti [...] NI 43 04 04 4. 30 00 WA Ac TR 47 -0 -2 09 00 L- ti OG 80 4- 8- 9 07 MA ve LY 41 20 20 48 RT CE 00 17 17 01 RI 3 03 PH N AR 40 MA 0 CY MC G #5 SP 91 RA Y BR 00 04 04 60 30 00 WA Ac EO 17 -0 -2 .0 00 L- ti 30 4- 8- 00 07 MA ve EL 85 20 20 47 RT LI 91 17 17 73 PT 0 72 PH A AR 10 MA 0- CY 25 #5 MC 91 G IN H CL 54 03 03 30 30 00 WA Ac OP 45 -0 -3 .0 00 L- ti ID 80 4- 1- 00 07 MA ve OG 88 20 20 44 RT RE 81 17 17 82 L 0 61 PH 75 AR MA MG CY TA #5 BL 91 ET ME 62 03 03 30 30 00 NC Ac TO 03 -0 -3 .0 00 L- ti AL 70 4- 1- 00 07 MA ve OL 83 20 20 46 RT OL 01 17 17 19 0 11 PH NICOLE AR CC MA CY ER #5 25 91 MG TA B AT 68 03 03 30 30 00 WA Ac OR 64 -0 -3 .0 00 L- ti VA 50 4- 1- [address] 45 20 20 46 RT AT 97 17 17 19 IN 0 09 PH AR 20 MA CY MG #5 TA 91 BL ET AL 00 03 03 90 30 00 NC Ac AL 22 -0 -3 .0 00 L- ti AZ 82 4- 1- 00 04 MA ve OL 02 20 20 52 RT AM 95 17 17 88 0 99 PH 0. AR 5 MA MG CY TA #5 BL 91 ET AM 16 03 03 60 30 00 WA Ac IT 72 -0 -3 .0 00 L- ti RI 90 4- 1- 00 07 MA ve PT 17 20 20 46 RT YL 21 17 17 19 IN 7 20 PH E AR HC MA L CY 25 #5 MG 91 TA B AT 68 01 02 30 30 00 WA Ac OR 64 -3 -2 .0 00 [...] 03 -3 -2 .0 00 L- ti AL 70 1- 4- 00 07 MA ve [...] 01 02 90 30 00 WA Ac AL 22 -3 -2 .0 00 L- ti [...] BL #5 ET 91 AT 68 01 30 30 00 WA Ac OR [...] 03 -0 -2 .0 00 L- ti AL 70 2- 7- 00 07 MA ve [...] AM 16 01 01 60 30 00 WA Ac IT 72 -0 -2 .0 00 L- ti RI 90 2- 7- 00 07 MA ve PT 17 20 20 46 RT YL 21 17 17 19 IN 7 20 PH E AR HC MA L CY 25 #5 MG 91 TA B AL 00 01 01 90 30 00 WA Ac AL 22 -0 -2 .0 00 L- ti AZ 82 2- 7- 00 04 MA ve OL 02 20 20 52 RT AM 95 17 17 88 0 99 PH 0. AR 5 MA MG CY TA #5 BL 91 ET Procedures Procedure DOS Code Location Performer Comment COMPREHEN 93439 LAB [facility] LAB RAFFY SIVE 7 [facility] HOLDINGS PANEL CATH PLCT 91207 ST JESSICA L HRT & 6 VIVIEN YULI ARTS W/NJX & PHYSICIAN ANGIO IMG S S&I CV STRS 60772 B[facility] DEVINE TST 6 [facility] RX CONT P ECG W/O I&R CV STRS 38221 [facility] SCHMID TST 6 [facility] XERS&/OR INC INC RX CONT ECG TRCG ONLY TECHNETIU A9500 [facility] Zhao TC-99M 6 [facility] SESTAMIBI INC INC DX PER STUDY DOSE MYOCARDIA 57829 [facility] BINU L SPECT 6 [facility] MULTIPLE INC INC STUDIES CV STRS 18290 BINU DEVINE TST 6 [facility] RX CONT P ECG I&R ONLY COMPREHEN 20532 LAB [facility] HOSTA KISHORE SIVE 6 [facility] PANEL LIPID 59740 FAMILY JOSE PANEL 6 CARE R H ASSOCIATE S COLLECTIO 78490 FAMILY JOSE N VENOUS 6 CARE R H BLOOD ASSOCIATE VENIPUNCT S URE LIPID 53418 FAMILY JOSE PANEL 6 CARE R H ASSOCIATE S COMPREHEN 45034 LAB [facility] LAB RAFFY SIVE 6 [facility] HOLDINGS PANEL BLOOD 06740 FAMILY FAMILY COUNT 5 CARE CARE COMPLETE ASSOCIATE ASSOCIATE AUTO&AUTO S S DIFRNTL WBC THERAPEUT 23272 FAMILY JOSEAGLE IC 5 CARE RIT PROPHYLAC ASSOCIATE TIC/DX S INJECTION SUBQ/IM INJECTION J1100 FAMILY KEAGLE 5 CARE RIT DEXAMETHO ASSOCIATE SONE S SODIUM PHOSPHATE 1 MG BLOOD 08983 FAMILY JOSE COUNT 5 CARE R H COMPLETE ASSOCIATE AUTO&AUTO S DIFRNTL WBC LIPID 11248 FAMILY JOSE PANEL 5 CARE R H ASSOCIATE S COLLECTIO 52158 FAMILY JOSE N 5 CARE R H CAPILLARY ASSOCIATE BLOOD S SPECIMEN COLLECTIO 08510 FAMILY JOSE N VENOUS 5 CARE R H BLOOD ASSOCIATE VENIPUNCT S URE RADEX 62450 [facility] SCHMID HAND 4 [facility] MINIMUM 3 INC INC VIEWS RADEX 28964 [facility] VALENTIN HAND 2 4 MEDICAL PEGGY VIEWS IMAGING ASS RADEX HIP 75662 [facility] SCHMID 4 [facility] UNILATERA INC INC L COMPLETE MINIMUM 2 VIEWS INJECTION J1030 JOSE JOSE 4 R H R H METHYLPRE DNISOLONE ACETATE 40 MG THERAPEUT 44732 JOSE JOSE IC 4 R H R H PROPHYLAC TIC/DX INJECTION SUBQ/IM Encounters Encounter Start End Date Code Location Performer Type Date EMERGENCY 53171 SHENG BARAKAT DEPT 7 7 PHYSICIAN VISIT S, [facility] HIGH SEVERITY& THREAT FUNCJ OFFICE 46047 [facility] OUTPATIEN 7 7 VIVIEN T VISIT 25 PHYSICIAN MINUTES S OFFICE 21129 [facility] CONSULTAT 6 6 VIVIEN COBOS NEW/ESTAB PHYSICIAN PATIENT S 60 [facility] - [facility] OUT[facility] INC T OFFICE 49633 [facility]OW[facility] CROWER OUTPATIEN 6 6 BRIANA WARREN T NEW 45 MINUTES OFFICE 81089 [facility] OUTPATIEN 5 5 CARE RIT T VISIT ASSOCIATE 15 S MINUTES OFFICE 11321 FAMILY JOSE OUTPATIEN 5 5 CARE R H T VISIT ASSOCIATE 15 S MINUTES [facility] T OFFICE [id number] FAMILY JOSE OUTPATIEN 4 4 CARE R H T VISIT ASSOCIATE 15 S MINUTES [facility] OUT[facility] T OFFICE 79436 JOSE JOSE OUTPATIEN 4 4 R H R H T VISIT 15 MINUTES
--- OUTSIDE RECORDS SUMMARY | 2017-04-04 05:44 | External Medical Summary Rpt | CCD ---
Author Author , RIAN Organization RIAN Address Unknown Phone [email or web address] [email or web address] Care Exterior Door Installer Name Role Phone NILSON ADAME, VIRGIESON Unavailable Unavailable WENDI VALENTIN PEGGY, Unavailable Unavailable VALENTIN PEGGY VALENTIN PEGGY, Unavailable Unavailable [facility] Unavailable [facility], [facility] ROSHNI, ROSHNI Unavailable Unavailable [facility] Unavailable Unavailable INC, [facility] Un[facility], [facility] HOSTA KISHORE, HOSTA KISHORE Unavailable Unavailable KEAGLE RIT, KEAGLE Unavailable Unavailable [facility] Unavailable Unavailable [facility], [facility] Unavailable Unavailable [facility], [facility] Unavailable Unavailable [facility], [facility] Unavailable Unavailable BRIANA LAMJOB BRIANA, LAMEIER Unavailable Unavailable BRIANA JOSE R H, Unavailable Unavailable JOSE R H [facility], Unavailable Unavailable DANILO, SHENG FLETCHER, [facility] Unavailable Unavailable PHYSICIANS, [facility] JESSICA, JESSICA Unavailable Unavailable JESSICA YULI, JESSICA Unavailable Unavailable YULI Purpose Continuity of Care Document - 10-27-2013 through 2016 Problems Code Diagnosis DOS Provider Status R0781 PLEURODYNIA 02-19-2017 SHENG [facility], [facility] E782 MIXED 02-15-2017 HYPERLIPIDE [facility] MIA [facility] 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/O PHYSICIANS ANGINA PECTORIS Z720 TOBACCO USE 02-15-2017 [facility] I10 ESSENTIAL 09-24-2016 [facility] PRIMARY [facility] HYPERTENSIO [facility] N R079 CHEST PAIN 04-13-2016 ST UNSPECIFIED [facility] R9439 ABNORMAL 04-13-2016 [facility] LR FUNCTION STUDY R071 CHEST PAIN 04-02-2016 [facility] R072 PRECORDIAL 04-02-2016 [facility] P E780 PURE 03-16-2016 [facility] HYPERCHOLES [facility] TEROLEMIA HOLDINGS Q81227 POST 08-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 460 ACUTE 11-25-2014 [facility] ITIS 496 CHRONIC 11-25-2014 [facility] AIRWAY [facility] OBSTRUCTION NEC 8489 UNSPECIFIED 07-08-2014 [facility] SITE OF ASSOC[facility] SPRAIN AND STRAIN 9239 CONTUSION 07-08-2014 [facility] OF [facility] UNSPECIFIED PART OF UPPER LIMB 7295 PAIN IN 05-07-2014 [facility] T[facility] LIMB 83095 SPRAIN AND 05-07-2014 [facility] STRAIN OF ASSOCIATES UNSPECIFIED SITE OF HAND 9594 INJURY 05-07-2014 [facility] UNSPECIFIED IM[facility]ING ASS HAND EXCEPT FINGER 9595 INJURY 05-07-2014 [facility] UNSPECIFIED INC FINGER 00765 PAIN IN 11-02-2013 [facility] PELVIC INC REGION AND [...] 08 09 90 30 00 [place] Ac MI 22 -3 -2 .0 00 L- ti [...] 03 -3 -2 .0 00 L- ti MI 70 1- 07 MA ve OL 83 20 20 49 RT OL 01 17 17 68 0 12 PH NICOLE AR CC MA CY ER #5 25 91 MG TA B MI 00 08 09 10 5 00 CA Ac ED 14 -3 -2 .0 00 L- ti NI 39 07 MA ve SO 73 20 20 50 RT NE 80 17 17 69 5 98 PH 20 AR MA MG CY TA #5 BL 91 ET AL 00 07 08 90 30 00 CA Ac MI 22 -3 -2 .0 00 L- ti AZ 82 04 MA ve OL 02 20 20 53 RT AM 95 17 17 08 0 39 PH 0. AR 5 MA MG CY TA #5 BL 91 ET AT 68 07 08 30 30 00 CA Ac OR 64 -3 -2 .0 00 L- ti VA 50 06-28- [address] 46 20 20 49 RT AT 05 17 17 68 IN 4 13 PH AR 40 MA CY MG #5 TA 91 BL ET ME 62 07 08 30 30 00 CA Ac TO 03 -3 -2 .0 00 L- ti MI 70 06-28- 07 MA ve OL 83 [...] AM 16 07 08 60 30 00 CA Ac IT 72 -3 -2 .0 00 [...] 03 -0 -2 .0 00 L- ti MI 70 3- 8- 00 07 MA ve [...] 07 07 90 30 00 WA Ac MI 22 -0 -2 .0 00 L- ti [...] 91 BR 00 05 60 30 00 CA Ac EO 17 -3 -2 .0 00 L- ti 30 1- 3- 07 MA ve EL 85 20 20 47 RT LI 91 17 17 73 PT 0 72 PH A AR 10 MA 0- CY 25 #5 MC 91 G IN H CL 54 05 12 21 30 00 CA Ac OP 45 -3 -2 .0 00 L- ti ID 80 3- 07 MA ve OG 88 20 20 44 RT RE 81 17 17 82 L 0 61 PH 75 AR MA MG CY TA #5 BL 91 ET ME 62 05 12 21 29 00 CA Ac TO 03 -3 -2 .0 00 L- ti MI 70 3- 07 MA ve OL 83 20 20 48 RT OL 01 17 17 01 0 02 PH NICOLE AR CC MA CY ER #5 25 91 MG TA B AL 00 00 CA Ac MI 22 -3 -2 .0 00 L- ti AZ 82 3- 04 MA ve OL 02 20 20 52 RT AM 95 17 17 98 0 96 PH 0. AR 5 MA MG CY TA #5 BL 91 ET CL 54 05 30 30 00 CA Ac OP 45 -0 -2 .0 00 L- ti ID 80 6- 07 MA ve OG 88 20 20 44 RT RE 81 17 17 82 L 0 61 PH 75 AR MA MG CY TA #5 BL 91 ET AT 68 05 11 20 30 00 CA Ac OR 64 -0 -2 .0 00 L- ti VA 50 6- [address] 45 20 20 48 RT AT 95 17 17 01 IN 4 01 PH AR 20 MA CY MG #5 TA 91 BL ET BR 00 05 60 30 00 CA Ac EO 17 -0 -2 .0 00 L- ti 30 6- 07 MA ve EL 85 20 20 47 RT LI 91 17 17 73 PT 0 72 PH A AR 10 MA 0- CY 25 #5 MC 91 G IN H AL 00 05 30 00 CA Ac MI 22 -0 -2 .0 00 L- ti AZ 82 1- 6- 04 MA ve OL 02 20 20 52 RT AM 95 17 17 98 0 96 PH 0. AR 5 MA MG CY TA #5 BL 91 ET ME 62 05 05 30 30 00 WA Ac TO 03 -0 -2 .0 00 L- ti MI 70 1- 6- 00 07 MA ve [...] ME 62 04 04 30 30 00 CA Ac TO 03 -0 -2 .0 00 L- ti MI 70 3- 8- 00 07 MA ve OL 83 20 20 48 RT OL 01 17 17 01 0 02 PH NICOLE AR CC MA CY ER #5 25 91 MG TA B ME 59 04 04 21 6 00 WA Ac TH 74 -0 -2 .0 00 L- ti YL 60 3- 8- 00 07 MA ve MI 00 20 20 48 RT ED 10 17 17 01 NI 3 32 PH SO AR LO MA NE CY 4 #5 MG 91 DO SE PK AL 00 04 04 90 30 00 WA Ac MI 22 -0 -2 .0 00 L- ti [...] ME 62 03 03 30 30 00 CA Ac TO 03 -0 -3 .0 00 L- ti MI 70 4- 1- 00 07 MA ve [...] AL 00 03 03 90 30 00 CA Ac MI 22 -0 -3 .0 00 L- ti [...] 03 -3 -2 .0 00 L- ti MI 70 1- 4- 00 07 MA ve [...] 01 02 90 30 00 WA Ac MI 22 -3 -2 .0 00 L- ti [...] 03 -0 -2 .0 00 L- ti MI 70 2- 7- 00 07 MA ve [...] 01 01 90 30 00 WA Ac MI 22 -0 -2 .0 00 L- ti AZ 82 2- 7- 00 04 MA ve OL 02 20 20 52 RT AM 95 17 17 88 0 99 PH 0. AR 5 MA MG CY TA #5 BL 91 ET Procedures Procedure DOS Code Location Performer Comment COMPREHEN 68652 LAB [facility] SIVE 7 [facility] PANEL CATH PLAZ [address] ST JESSICA L HRT & 6 VIVIEN YULI ARTS W/NJX & PHYSICIAN ANGIO IMG S S&I CV STRS 16959 [facility] DEVINE TST 6 [facility] RX CONT P ECG W/O I&R CV STRS 66623 [facility] SCHMID TST 6 [facility] XERS&/OR INC INC RX CONT ECG TRCG ONLY TECHNETIU A9500 [facility] Zhao TC-99M 6 [facility] SESTAMIBI INC INC DX PER STUDY DOSE MYOCARDIA 18722 [facility] BINU L SPECT 6 [facility] MULTIPLE INC INC STUDIES CV STRS 61596 [facility] DEVINE TST 6 [facility] RX CONT P ECG I&R ONLY COMPREHEN 28754 LAB [facility] HOSTA KISHORE SIVE 6 [facility] PANEL LIPID 66946 FAMILY JOSE PANEL 6 CARE R H ASSOCIATE S COLLECTIO 27335 FAMILY JOSE N VENOUS 6 CARE R H BLOOD ASSOCIATE VENIPUNCT S URE LIPID 04487 FAMILY JOSE PANEL 6 CARE R H ASSOCIATE S COMPREHEN 61917 LAB [facility] LAB [facility] SIVE 6 [facility] [employer] [facility]INGS PANEL BLOOD 69004 FAMILY FAMILY COUNT 5 CARE CARE COMPLETE ASSOCIATE ASSOCIATE AUTO&AUTO S S DIFRNTL WBC THERAPEUT 21366 FAMILY JOSEAGLE IC 5 CARE RIT PROPHYLAC ASSOCIATE TIC/DX S INJECTION SUBQ/IM INJECTION J1100 FAMILY KEAGLE 5 CARE RIT DEXAMETHO ASSOCIATE SONE S SODIUM PHOSPHATE 1 MG BLOOD 23550 FAMILY JOSE COUNT 5 CARE R H COMPLETE ASSOCIATE AUTO&AUTO S DIFRNTL WBC LIPID 93962 FAMILY JOSE PANEL 5 CARE R H ASSOCIATE S COLLECTIO 89595 FAMILY JOSE N 5 CARE R H CAPILLARY ASSOCIATE BLOOD S SPECIMEN COLLECTIO 33120 FAMILY JOSE N VENOUS 5 CARE R H BLOOD ASSOCIATE VENIPUNCT S URE RADEX 78291 [facility] SCHMID HAND 4 [facility] MINIMUM 3 INC INC VIEWS RADEX 73466 [facility] HAND 2 4 MEDICAL PEGGY VIEWS IMAGING ASS RADEX HIP 88290 [facility] SCHMID 4 [facility] UNILATERA INC INC L COMPLETE MINIMUM 2 VIEWS INJECTION J1030 JOSE JOSE 4 R H R H METHYLPRE DNISOLONE ACETATE 40 MG THERAPEUT 65819 JOSE JOSE IC 4 R H R H PROPHYLAC TIC/DX INJECTION SUBQ/IM Encounters Encounter Start End Date Code Location Performer Type Date EMERGENCY 69603 SHENG BARAKAT DEPT 7 7 PHYSICIAN VISIT S, PLLC HIGH SEVERITY& THREAT FUNCJ OFFICE 97797 [facility] OUTPATIEN 7 7 VIVIEN T VISIT 25 PHYSICIAN MINUTES S OFFICE 49705 [facility] CONSULTAT 6 6 VIVIEN COBOS NEW/ESTAB PHYSICIAN PATIENT S 60 MIN [facility]OSPITAL [facility] - 6 6 [facility] OUTPATIEN INC T OFFICE 84766 [facility] OUTPATIEN 6 6 BRIANA WARREN T NEW 45 MINUTES OFFICE 56379 [facility] KEAGLE OUTPATIEN 5 5 CARE RIT T VISIT ASSOCIATE 15 S MINUTES OFFICE 72281 FAMILY JOSE OUTPATIEN 5 5 CARE R H T VISIT ASSOCIATE 15 S MINUTES [facility]OSPITAL [facility] - 4 4 [facility] OUTPATIEN INC T OFFICE 60918 FAMILY JOSE OUTPATIEN 4 4 CARE R H T VISIT ASSOCIATE 15 S MINUTES [facility]OSPITAL [facility] - 4 4 [facility] OUTPATIEN INC T OFFICE 05864 JOSE JOSE OUTPATIEN 4 4 R H R H T VISIT 15 MINUTES
--- OUTSIDE RECORDS SUMMARY | 2017-04-04 05:44 | External Medical Summary Rpt ---
Author Author RIAN Joanne, RIAN Production Organization [employer]IAN [employer] Address Unknown Phone Unavailable Results CARDIAC PROCEDURE Observa Value Referen Units Interpr Notes Date ti ce etation Range This is No No No No Apr 13 a informa informa informa informa 2015 summary tion in in tion in tion in 1:34 PM source source source source report. data data data data The complet e report is availab le in the patient 's medical record. If you cannot access the medical record, please contact the sending organiz ation for a detaile d fax or copy.\. br\\.br \\.br\ Mid LAD lesion 35% stenose d.\.br\ Mid RCA lesion 50% stenose d.\.br\ Impress ion:\.b r\Mild to moderat e non-obs tructiv e CAD in LAD (35%), and RCA (50%).\ .br\Nor mal LV systoli c functio n.\.br\ \.br\Pl an:\.br \Lifest yle modific ation.\ .br\Nee ds to stop smoking .\.br\S tart ASA, Plavix, Statin. \.br\\. br\ Auto Diff Observa Value Referen Units Interpr Notes Date ti ce etation Range Neutrop 69.2 No % No No Apr 13 hils informa informa informa 2015 [#/volu tion in tion in ti in 10:53 me] in source source source AM Blood data data data by Automat ed count Lymphoc 22.4 No % No No Apr 13 ytes informa informa informa 2015 [#/volu tion in tion in ti in 10:53 me] in source source source AM Blood data data data by Automat ed count Monocyt 5.9 No % No No Apr 13 es informa informa informa 2015 [#/volu tion in tion in ti in 10:53 me] in source source source AM Blood data data data by Automat ed count Eos 2.0 No % No No Mar 21 Percent informa informa informa 2016 tion in tion in tion in 10:53 source source source AM data data data Baso 0.5 No % No No Mar 21 Percent informa informa informa 2016 tion in tion in tion in 10:53 source source source AM data data data Neut# 5.9 1.8 - x10(3)/ No No Mar 21 7.7 mcL informa informa 2016 tion in tion in 10:53 source source AM data data Lymph# 1.9 0.6 - x10(3)/ No No Apr 13 4.8 mcL informa informa 2016 tion in tion in 10:53 source source AM data data [place]# 0.5 0.0 - x10(3)/ No No Mar 21 1.3 mcL informa informa 2016 tion in tion in 10:53 source source AM data data Eos# 0.2 0.0 - x10(3)/ No No Apr 13 0.5 mcL informa informa 2016 tion in tion in 10:53 source source AM data data Baso# 0.0 0.0 - x10(3)/ No No Mar 21 0.2 mcL informa informa 2016 tion in tion in 10:53 source source AM data data CBC Observa Value Referen Units Interpr Notes Date tion ce etation Range Do not repeat if done in the past 10 days. LEUKOCY 8.5 4.0 - x10(3)/ No No Apr 13 ALYX 11.0 mcL informa informa 2015 tion in tion in 10:53 source source AM data data Erythro 4.88 3.80 - x10(6)/ No No Apr 13 cytes 5.10 mcL informa informa 2016 [#/volu tion in tion in 10:53 me] in source source AM Blood data data by Automat ed count Hemoglo 14.7 12.0 - gm/dL No No Apr 13 bin 15.6 informa informa 2016 [Mass/v tion in tion in 10:53 olume] source source AM in data data Blood Hematoc 44.0 35.7 - % No No Apr 13 rit 45.9 informa informa 2016 [Volume tion in tion in 10:53 source source AM Fractio data data n] of Blood by Automat ed count Erythro 90.2 82.5 - fL No No Apr 13 cyte 99.8 informa informa 2016 mean tion in tion in 10:53 corpusc source source AM ular data data volume [Entiti c volume] by Automat ed count Erythro 30.2 27.0 - pg No No Apr 13 cyte 34.3 informa informa 2016 mean tion in tion in 10:53 corpusc source source AM ular data data hemoglo bin [Entiti c mass] by Automat ed count Erythro 33.5 32.1 - gm/dL No No Apr 13 cyte 35.3 informa informa 2016 mean tion in tion in 10:53 corpusc source source AM ular data data hemoglo bin concent ration [Mass/v olume] by Automat ed count Erythro 14.2 11.5 - % No No Apr 13 cyte 15.0 informa informa 2016 distrib tion in tion in 10:53 ution source source AM width data data [Ratio] by Automat ed count [place]le 267 144 - x10(3)/ No No Apr 13 ts 423 mcL informa informa 2016 [#/volu tion in tion in 10:53 me] in source source AM Blood data data by Automat ed count MPV 8.5 6.8 - fL No No Apr 13 10.8 informa informa 2016 tion in tion in 10:53 source source AM data data
--- OUTSIDE RECORDS SUMMARY | 2017-04-04 05:44 | External Medical Summary Rpt | CCD ---
Demographics Preferred Language Nepalese Marital Status Unknown Temple Affiliation Unknown Race Unknown Ethnic Group Unknown Author Author , RIAN MODI Address Unknown Phone Immunization No patient found.
--- OUTSIDE RECORDS SUMMARY | 2017-04-04 05:44 | External Medical Summary Rpt ---
[...] in 10:53 source source AM data data Blanco# 0.5 0.0 - x10(3)/ No No Mar [...]
== END 2017-03-26 00:12 | disposition home or self-care (01) ==
LOC: ER 21:57
PROC: 0HQFXZZ Repair Right Hand Skin, External Approach (ICD-10-PCS; principal; 2017-03-25)
DX: S61.411A Laceration without foreign body of right hand, initial encounter (principal); Z23 Encounter for immunization; J45.909 Unspecified asthma, uncomplicated